=== PATIENT | female | born 1960 | race Caucasian/White ===

== ENCOUNTER → 2017-09-02 | Outpatient (CLI) | payer BC ==
--- NOTE | 2017-09-02 11:30 | Diagnostic Imaging Report ---
TECHNIQUE: Magnetic resonance imaging of the RIGHT KNEE was performed WITHOUT injected contrast. HISTORY: Right knee pain COMPARISON: None available. FINDINGS: LIGAMENTS AND TENDONS: ACL: Intact PCL: Intact Collateral ligaments: Intact Iliotibial band: Unremarkable Popliteal tendon: Intact Extensor mechanism: Intact JOINT: Menisci: Medial: Complex tearing of the body and posterior horn with extrusion Lateral: Intact without tear. Articular Cartilage: Medial Compartment: Diffuse high-grade cartilage loss with areas of full-thickness erosion and subchondral edema and cystic change. Lateral Compartment: Diffuse partial-thickness cartilage loss with areas of high-grade fissuring and subchondral cystic change. Patellofemoral Compartment: Diffuse partial-thickness cartilage loss with high-grade erosion at the patellar apex and medial facet. Joint Fluid: Small joint effusion. BONE: No focal or infiltrative bone marrow replacing abnormality. No acute fracture. SOFT TISSUES: Otherwise, unremarkable. IMPRESSION: Medial meniscus complex tear with areas of full-thickness cartilage loss and subchondral edema. Signed by: Dr. Reg Dial M.D. on 09/02/2017 11:26 AM
== END ==
LOC: MRI 09:41
PROVIDERS: ATTEND Specialist
DX: S83.241A Other tear of medial meniscus, current injury, right knee, initial encounter (principal)